=== PATIENT | male | born 1945 | race Caucasian/White ===

== ENCOUNTER 2019-04-11 14:16 | Emergency (ER) | payer OTHER, MEDICARE ==
[~2019-04-11] VITALS: Ht 172.7 cm; Wt 95.2 kg
[~2019-04-11 14:16] MED LIST: ALBU90OI INH; ATEN25 PO; CARB100ER PO; FOSI10; IBUP400 PO; LOMOTRIGINE; MECL25 PO; PHENO60 PO; SIMV80 PO
[2019-04-11] MEDS ORDERED: ALBU2.5V5 INH (16:42)
[2019-04-11] MEDS ORDERED: ATOR10 PO (16:43)
[2019-04-11] MEDS ORDERED: CHLO25B PO (16:43)
[2019-04-11] MEDS ORDERED: CARB10OTL (16:43)
[2019-04-11] MEDS ORDERED: ASPI81CH PO (16:43)
[2019-04-11] MEDS ORDERED: Nizoral120 M1 (16:44)
[2019-04-11] MEDS ORDERED: GABA100 PO (16:44)
[2019-04-11] MEDS ORDERED: ARTIFICIAL TEA1 EACH (16:44)
[2019-04-11] MEDS ORDERED: LAMO25 PO (16:44)
[2019-04-11] MEDS ORDERED: PHENO60 PO (16:45)
[2019-04-11] MEDS ORDERED: PSYSENPA PO (16:45)
[2019-04-11] MEDS ORDERED: GENPREOPSU (16:45)
[2019-04-11] MEDS ORDERED: Lopressor 25 mg25 MG PO (16:45)
[2019-04-11] MEDS ORDERED: SODFLU2.2 PO (16:46)
[2019-04-11 16:52] LABS: Source, Urine Clean Catch
[2019-04-11 16:55] LABS: BASOPHILS ABSOLUTE AUTO 0.06 K/mm3 (0.00-0.23); BASOPHILS PERCENT AUTO 1 % (0-2); EOSINOPHILS ABSOLUTE AUTO 0.14 K/mm3 (0.00-0.68); EOSINOPHILS PERCENT AUTO 2 % (0-6); Hematocrit 42.7 % (37.0-53.0); Hemoglobin 14.3 g/dL (13.5-17.5); IMMATURE GRAN ABSOLUTE AUTO 0.02 K/mm3 (0.00-0.10); IMMATURE GRAN PERCENT AUTO 0 % (0-1); LYMPHOCYTES ABSOLUTE AUTO 1.76 K/mm3 (0.84-5.20); LYMPHOCYTES PERCENT AUTO 26 % (21-46); MONOCYTES ABSOLUTE AUTO 0.77 K/mm3 (0.16-1.47); MONOCYTES PERCENT AUTO 11 % (4-13); Mean Corpuscular HGB Conc 33.5 g/dL (31.5-36.5); Mean Corpuscular Volume 90 fL (80-100); Mean Platelet Volume 11.1 fL (9.1-12.4); NEUTROPHILS ABSOLUTE AUTO 3.99 K/mm3 (1.96-9.15); NEUTROPHILS PERCENT AUTO 59 % (41-73); Platelet Count 264 K/mm3 (150-400); RDW Coefficient Variation 12.9 % (11.7-14.2); RDW Standard Deviation 42.1 fL (35.1-46.3); Red Blood Cell Count 4.77 M/mm3 (4.30-5.90); White Blood Cell Count 6.74 K/mm3 (4.00-11.30)
[2019-04-11 16:56] LABS: Bilirubin, Urine Neg (Neg); Blood, Urine Neg (Neg); Glucose Qualitative, Urine Neg (Neg); Ketones, Urine Neg (Neg); Leukocyte Esterase, Urine Neg (Neg); Nitrite, Urine Neg (Neg); Protein, Urine Neg (Neg); Urobilinogen, Urine NORM (Normal)
[2019-04-11 16:59] LABS: Appearance, Urine Clear (Clear); Color, Urine Yellow (P-Yellow)
[2019-04-11 17:11] LABS: Alanine Aminotransfer (ALT/SGP 21 U/L (12-78); Albumin/Globulin Ratio 1.2 (0.8-1.8); Alk Phos 86 U/L (50-136); Anion Gap 7 mmol/L (6-16); Aspartate Aminotrans (AST/SGOT 18 U/L (12-37); Bilirubin, Total 0.3 mg/dL (0.1-1.0); Blood Urea Nitrogen 11 mg/dL (8-24); Bun/Creatinine Ratio 12.2 (12.0-20.0); CO2, Blood 31 mmol/L (21-32); Calcium, Blood 9.3 mg/dL (8.5-10.1); Chloride, Blood 96 mmol/L (98-108); Creatinine, Blood 0.91 mg/dL (0.60-1.20); Globulin, Blood 3.4 g/dL (2.2-4.0); Glomerular Filtration Rate >60 (60-); Glucose, Blood 93 mg/dL (70-99); Potassium, Blood 3.1 mmol/L (3.5-5.5); Sodium, Blood 134 mmol/L (136-145); Total Protein, Blood 7.4 g/dL (6.4-8.2)
== END 2019-04-11 18:39 | disposition home or self-care (01) ==
LOC: ER 14:16
PROVIDERS: Physician Assistant
DX: H53.143 Visual discomfort, bilateral (principal); E87.6 Hypokalemia; Z88.8 Allergy status to other drugs, medicaments and biological substances; Z79.899 Other long term (current) drug therapy
CPT/HCPCS: 36415; 70450; 80053; 81003; 85025; 93005; 93010; 99284-25

== ENCOUNTER 2019-06-14 17:46 | Emergency (ER) | payer MEDICARE, OTHER ==
[~2019-06-14] VITALS: Ht 172.7 cm; Wt 95.7 kg
[~2019-06-14 17:46] MED LIST changes: +ALBU2.5V5 INH; +ARTIFICIAL TEA1 EACH; +ASPI81CH PO; +ATOR10 PO; +CARB10OTL; +CHLO25B PO; +GABA100 PO; +GENPREOPSU; +LAMO25 PO; +Lopressor 25 mg25 MG PO; +Nizoral120 M1; +PSYSENPA PO; +SODFLU2.2 PO
[2019-06-14 19:08] LABS: BASOPHILS ABSOLUTE AUTO 0.07 K/mm3 (0.00-0.23); BASOPHILS PERCENT AUTO 1 % (0-2); EOSINOPHILS ABSOLUTE AUTO 0.05 K/mm3 (0.00-0.68); EOSINOPHILS PERCENT AUTO 0 % (0-6); Hematocrit 42.3 % (37.0-53.0); Hemoglobin 13.9 g/dL (13.5-17.5); IMMATURE GRAN ABSOLUTE AUTO 0.08 K/mm3 (0.00-0.10); IMMATURE GRAN PERCENT AUTO 1 % (0-1); LYMPHOCYTES ABSOLUTE AUTO 1.06 K/mm3 (0.84-5.20); LYMPHOCYTES PERCENT AUTO 9 % (21-46); MONOCYTES ABSOLUTE AUTO 0.82 K/mm3 (0.16-1.47); MONOCYTES PERCENT AUTO 7 % (4-13); Mean Corpuscular HGB 29.9 pg (26.0-34.0); Mean Corpuscular HGB Conc 32.9 g/dL (31.5-36.5); Mean Corpuscular Volume 91 fL (80-100); NEUTROPHILS ABSOLUTE AUTO 9.61 K/mm3 (1.96-9.15); NEUTROPHILS PERCENT AUTO 82 % (41-73); Platelet Count 332 K/mm3 (150-400); RDW Standard Deviation 43.1 fL (35.1-46.3); Red Blood Cell Count 4.65 M/mm3 (4.30-5.90); White Blood Cell Count 11.69 K/mm3 (4.00-11.30)
[2019-06-14 19:34] LABS: Alanine Aminotransfer (ALT/SGP 20 U/L (12-78); Albumin, Blood 3.8 g/dL (3.4-5.0); Alk Phos 105 U/L (50-136); Anion Gap 5 mmol/L (6-16); Aspartate Aminotrans (AST/SGOT 43 U/L (12-37); Bilirubin, Total 0.6 mg/dL (0.1-1.0); Blood Urea Nitrogen 13 mg/dL (8-24); Bun/Creatinine Ratio 13.8 (12.0-20.0); CO2, Blood 27 mmol/L (21-32); Chloride, Blood 98 mmol/L (98-108); Creatinine, Blood 0.94 mg/dL (0.60-1.20); Glomerular Filtration Rate >60 (60-); Glucose, Blood 140 mg/dL (70-99); Potassium, Blood 4.7 mmol/L (3.5-5.5); Sodium, Blood 130 mmol/L (136-145); Total Protein, Blood 7.8 g/dL (6.4-8.2); Troponin I <0.015 ng/mL (0.000-0.040)
[2019-06-14] MEDS ORDERED: CHLO25B PO (20:07)
== END 2019-06-14 22:10 | disposition home or self-care (01) ==
LOC: ER 17:46
PROVIDERS: Physician Assistant
DX: S63.501A Unspecified sprain of right wrist, initial encounter (principal); S40.011A Contusion of right shoulder, initial encounter; S00.511A Abrasion of lip, initial encounter; S00.81XA Abrasion of other part of head, initial encounter; S60.512A Abrasion of left hand, initial encounter; Z88.4 Allergy status to anesthetic agent; Z88.8 Allergy status to other drugs, medicaments and biological substances; Z79.899 Other long term (current) drug therapy; Z79.82 Long term (current) use of aspirin; Z79.52 Long term (current) use of systemic steroids; W01.0XXA Fall on same level from slipping, tripping and stumbling without subsequent striking against object, initial encounter
CPT/HCPCS: 70450; 71046; 73110; 80053; 84484; 85025; 93005; 93010; 99284-25

== ENCOUNTER 2019-06-17 11:22 | Emergency (ER) | payer MEDICARE, OTHER ==
[~2019-06-17] VITALS: Ht 172.7 cm; Wt 95.7 kg
[2019-06-17] MEDS ORDERED: Norvasc5 MG PO (11:55)
[2019-06-17 12:17] LABS: BASOPHILS ABSOLUTE AUTO 0.05 K/mm3 (0.00-0.23); BASOPHILS PERCENT AUTO 1 % (0-2); EOSINOPHILS ABSOLUTE AUTO 0.03 K/mm3 (0.00-0.68); EOSINOPHILS PERCENT AUTO 0 % (0-6); Hematocrit 41.3 % (37.0-53.0); Hemoglobin 13.7 g/dL (13.5-17.5); IMMATURE GRAN ABSOLUTE AUTO 0.04 K/mm3 (0.00-0.10); IMMATURE GRAN PERCENT AUTO 0 % (0-1); LYMPHOCYTES ABSOLUTE AUTO 1.56 K/mm3 (0.84-5.20); LYMPHOCYTES PERCENT AUTO 17 % (21-46); MONOCYTES PERCENT AUTO 11 % (4-13); Mean Corpuscular HGB 30.1 pg (26.0-34.0); Mean Corpuscular HGB Conc 33.2 g/dL (31.5-36.5); Mean Corpuscular Volume 91 fL (80-100); Mean Platelet Volume 10.2 fL (9.1-12.4); NEUTROPHILS ABSOLUTE AUTO 6.53 K/mm3 (1.96-9.15); NEUTROPHILS PERCENT AUTO 71 % (41-73); Platelet Count 269 K/mm3 (150-400); RDW Coefficient Variation 12.8 % (11.7-14.2); RDW Standard Deviation 42.4 fL (35.1-46.3); Red Blood Cell Count 4.55 M/mm3 (4.30-5.90); White Blood Cell Count 9.21 K/mm3 (4.00-11.30)
[2019-06-17 12:39] LABS: Anion Gap 7 mmol/L (6-16); Blood Urea Nitrogen 12 mg/dL (8-24); Bun/Creatinine Ratio 14.6 (12.0-20.0); CO2, Blood 28 mmol/L (21-32); Calcium, Blood 8.9 mg/dL (8.5-10.1); Chloride, Blood 97 mmol/L (98-108); Creatinine, Blood 0.82 mg/dL (0.60-1.20); Glomerular Filtration Rate >60 (60-); Glucose, Blood 96 mg/dL (70-99); Potassium, Blood 3.7 mmol/L (3.5-5.5); Sodium, Blood 132 mmol/L (136-145)
[2019-06-17] MEDS ORDERED: Norco 7.5-3251 EACH PO (13:43)
== END 2019-06-17 14:21 | disposition home or self-care (01) ==
LOC: ER 11:22
PROVIDERS: Emergency Medicine
DX: S22.31XA Fracture of one rib, right side, initial encounter for closed fracture (principal); S00.531A Contusion of lip, initial encounter; S00.83XA Contusion of other part of head, initial encounter; S50.11XA Contusion of right forearm, initial encounter; I10 Essential (primary) hypertension; F43.10 Post-traumatic stress disorder, unspecified; Z87.820 Personal history of traumatic brain injury; Z88.8 Allergy status to other drugs, medicaments and biological substances; Z79.82 Long term (current) use of aspirin; Z79.899 Other long term (current) drug therapy; G43.909 Migraine, unspecified, not intractable, without status migrainosus; W19.XXXA Unspecified fall, initial encounter
CPT/HCPCS: 71111; 80048; 85025; 93005; 93010; 99284-25

== ENCOUNTER 2021-08-24 05:24 | Emergency (ER) | payer MEDICARE, OTHER ==
[~2021-08-24] VITALS: Ht 177.8 cm; Wt 90.7 kg
[~2021-08-24 05:24] MED LIST changes: +Norco 7.5-3251 EACH PO; +Norvasc5 MG PO
[2021-08-24 06:44] LABS: BASOPHILS ABSOLUTE AUTO 0.03 K/mm3 (0.00-0.23); BASOPHILS PERCENT AUTO 1 % (0-2); EOSINOPHILS PERCENT AUTO 2 % (0-6); Hematocrit 44.1 % (37.0-53.0); Hemoglobin 14.3 g/dL (13.5-17.5); IMMATURE GRAN ABSOLUTE AUTO 0.02 K/mm3 (0.00-0.10); IMMATURE GRAN PERCENT AUTO 0 % (0-1); LYMPHOCYTES PERCENT AUTO 24 % (21-46); MONOCYTES ABSOLUTE AUTO 0.51 K/mm3 (0.16-1.47); MONOCYTES PERCENT AUTO 9 % (4-13); Mean Corpuscular HGB 29.4 pg (26.0-34.0); Mean Corpuscular HGB Conc 32.4 g/dL (31.5-36.5); Mean Corpuscular Volume 91 fL (80-100); Mean Platelet Volume 11.2 fL (9.1-12.4); NEUTROPHILS ABSOLUTE AUTO 3.47 K/mm3 (1.96-9.15); NEUTROPHILS PERCENT AUTO 64 % (41-73); Platelet Count 243 K/mm3 (150-400); RDW Coefficient Variation 13.2 % (11.7-14.2); RDW Standard Deviation 43.9 fL (35.1-46.3); Red Blood Cell Count 4.86 M/mm3 (4.30-5.90); White Blood Cell Count 5.43 K/mm3 (4.00-11.30)
[2021-08-24 06:58] LABS: Alanine Aminotransfer (ALT/SGP 21 U/L (12-78); Albumin, Blood 3.5 g/dL (3.4-5.0); Albumin/Globulin Ratio 0.9 (0.8-1.8); Alk Phos 76 U/L (50-136); Anion Gap 6 mmol/L (6-16); Aspartate Aminotrans (AST/SGOT 18 U/L (12-37); Bilirubin, Total 0.5 mg/dL (0.1-1.0); Blood Urea Nitrogen 23 mg/dL (8-24); Bun/Creatinine Ratio 23.1 (12.0-20.0); CO2, Blood 27 mmol/L (21-32); Calcium, Blood 9.4 mg/dL (8.5-10.1); Chloride, Blood 106 mmol/L (98-108); Creatinine, Blood 0.99 mg/dL (0.60-1.20); Globulin, Blood 3.9 g/dL (2.2-4.0); Glomerular Filtration Rate >60 (60-); Glucose, Blood 113 mg/dL (70-99); Potassium, Blood 3.9 mmol/L (3.5-5.5); Sodium, Blood 139 mmol/L (136-145); Total Protein, Blood 7.4 g/dL (6.4-8.2); Troponin I <0.015 ng/mL (0.000-0.040)
== END 2021-08-24 07:29 | disposition home or self-care (01) ==
LOC: ER 05:24
PROVIDERS: Emergency Medicine
DX: Z04.3 Encounter for examination and observation following other accident (principal); W19.XXXA Unspecified fall, initial encounter
CPT/HCPCS: 36415; 80053; 84484; 85025; 93005; 93010; 99284-25

== ENCOUNTER 2021-08-24 16:24 | Emergency (ER) | payer MEDICARE, OTHER ==
[~2021-08-24] VITALS: Ht 167.6 cm; Wt 127.0 kg
[2021-08-24 17:04] LABS: BASOPHILS ABSOLUTE AUTO 0.04 K/mm3 (0.00-0.23); BASOPHILS PERCENT AUTO 1 % (0-2); EOSINOPHILS ABSOLUTE AUTO 0.01 K/mm3 (0.00-0.68); EOSINOPHILS PERCENT AUTO 0 % (0-6); Hematocrit 43.4 % (37.0-53.0); Hemoglobin 14.3 g/dL (13.5-17.5); IMMATURE GRAN ABSOLUTE AUTO 0.02 K/mm3 (0.00-0.10); IMMATURE GRAN PERCENT AUTO 0 % (0-1); LYMPHOCYTES ABSOLUTE AUTO 1.31 K/mm3 (0.84-5.20); LYMPHOCYTES PERCENT AUTO 15 % (21-46); MONOCYTES ABSOLUTE AUTO 0.77 K/mm3 (0.16-1.47); MONOCYTES PERCENT AUTO 9 % (4-13); Mean Corpuscular HGB 29.8 pg (26.0-34.0); Mean Corpuscular HGB Conc 32.9 g/dL (31.5-36.5); Mean Corpuscular Volume 90 fL (80-100); Mean Platelet Volume 10.6 fL (9.1-12.4); NEUTROPHILS ABSOLUTE AUTO 6.64 K/mm3 (1.96-9.15); NEUTROPHILS PERCENT AUTO 76 % (41-73); Platelet Count 265 K/mm3 (150-400); RDW Coefficient Variation 13.2 % (11.7-14.2); RDW Standard Deviation 43.7 fL (35.1-46.3); White Blood Cell Count 8.79 K/mm3 (4.00-11.30)
[2021-08-24 17:27] LABS: Alanine Aminotransfer (ALT/SGP 23 U/L (12-78); Albumin, Blood 3.9 g/dL (3.4-5.0); Alk Phos 83 U/L (50-136); Anion Gap 4 mmol/L (6-16); Aspartate Aminotrans (AST/SGOT 25 U/L (12-37); Bilirubin, Total 0.4 mg/dL (0.1-1.0); Blood Urea Nitrogen 24 mg/dL (8-24); Bun/Creatinine Ratio 23.1 (12.0-20.0); CO2, Blood 30 mmol/L (21-32); Calcium, Blood 9.3 mg/dL (8.5-10.1); Chloride, Blood 103 mmol/L (98-108); Creatinine, Blood 1.04 mg/dL (0.60-1.20); Globulin, Blood 3.9 g/dL (2.2-4.0); Glomerular Filtration Rate >60 (60-); Glucose, Blood 103 mg/dL (70-99); Potassium, Blood 3.7 mmol/L (3.5-5.5); Sodium, Blood 137 mmol/L (136-145); Total Protein, Blood 7.8 g/dL (6.4-8.2); Troponin I <0.015 ng/mL (0.000-0.040)
[2021-08-24 19:04] LABS: International Normalized Ratio 1.01; Prothrombin Time Results 10.6 Sec (9.7-11.5)
== END 2021-08-24 19:58 | disposition short-term general hospital (02) ==
LOC: ER 16:24
PROVIDERS: Emergency Medicine
DX: I62.9 Nontraumatic intracranial hemorrhage, unspecified (principal); R41.82 Altered mental status, unspecified; I10 Essential (primary) hypertension; G40.909 Epilepsy, unspecified, not intractable, without status epilepticus; Z87.891 Personal history of nicotine dependence
CPT/HCPCS: 36415; 36430; 70496; 70498; 73502; 73560-RT; 80053; 84484; 85025; 85610; 86900; 86901; 93005; 93010; 96374; 99285-25; J0360; J7050; P9053; Q9967

== ENCOUNTER 2023-08-16 11:05 | Inpatient (IN) | payer OTHER ==
[~2023-08-16] VITALS: Ht 172.7 cm; Wt 83.9 kg
[2023-08-16 13:24] LABS: BASOPHILS ABSOLUTE AUTO 0.04 K/mm3 (0.00-0.23); BASOPHILS PERCENT AUTO 0 % (0-2); EOSINOPHILS ABSOLUTE AUTO 0.03 K/mm3 (0.00-0.68); EOSINOPHILS PERCENT AUTO 0 % (0-6); Hematocrit 44.9 % (37.0-53.0); IMMATURE GRAN ABSOLUTE AUTO 0.06 K/mm3 (0.00-0.10); IMMATURE GRAN PERCENT AUTO 1 % (0-1); LYMPHOCYTES ABSOLUTE AUTO 0.86 K/mm3 (0.84-5.20); LYMPHOCYTES PERCENT AUTO 8 % (21-46); MONOCYTES ABSOLUTE AUTO 0.55 K/mm3 (0.16-1.47); MONOCYTES PERCENT AUTO 5 % (4-13); Mean Corpuscular HGB 29.8 pg (26.0-34.0); Mean Corpuscular HGB Conc 33.4 g/dL (31.5-36.5); Mean Corpuscular Volume 89 fL (80-100); Mean Platelet Volume 10.5 fL (9.1-12.4); NEUTROPHILS ABSOLUTE AUTO 8.99 K/mm3 (1.96-9.15); NEUTROPHILS PERCENT AUTO 85 % (41-73); Platelet Count 275 K/mm3 (150-400); RDW Coefficient Variation 13.1 % (11.7-14.2); RDW Standard Deviation 42.6 fL (35.1-46.3); Red Blood Cell Count 5.04 M/mm3 (4.30-5.90); White Blood Cell Count 10.53 K/mm3 (4.00-11.30)
[2023-08-16 13:55] LABS: Albumin, Blood 3.9 g/dL (3.4-5.0); Bilirubin, Total 0.3 mg/dL (0.1-1.0); Bun/Creatinine Ratio 17.7 (12.0-20.0); Calcium, Blood 9.1 mg/dL (8.5-10.1); Creatinine, Blood 1.13 mg/dL (0.60-1.20); Potassium, Blood 4.5 mmol/L (3.5-5.5); Total Protein, Blood 7.9 g/dL (6.4-8.2)
[2023-08-16 15:46] VITALS: BP 157/74
[2023-08-16] MEDS ORDERED: MELATONIN5 M1 PO (16:13)
--- NOTE | 2023-08-16 16:47 | NUR ---
SHIFT SUMMARY: RIGHT HIP FX PATIENT IS A&OX4. VS ARE WNL AND IS ON RA. PAIN IS MANAGED WITH IV TORADOL AT THIS TIME. PATIENT DENIES NUMBNESS OR TINGLING IN ALL EXTREMITIES. CAN MOVE ALL FINGERS AND TOES WHEN ASKED. PATIENT IS TOLERATING PO INTAKE. PATIENT IS LAYING IN BED WITH CALL LIGHT IN REACH AND FAMILY AT BEDSIDE. THE PLAN IS TO BE NPO AT MIDNIGHT TONIGHT AND TO HAVE SURGERY TOMORROW.
[2023-08-16 19:42] VITALS: BP 169/68
[2023-08-17] VITALS (16 sets, daily range): BP systolic 104–164; BP diastolic 57–96
[2023-08-17 04:48] LABS: Hematocrit 38.1 % (37.0-53.0); Hemoglobin 12.7 g/dL (13.5-17.5); Mean Corpuscular HGB 29.4 pg (26.0-34.0); Mean Corpuscular HGB Conc 33.3 g/dL (31.5-36.5); Mean Corpuscular Volume 88 fL (80-100); Mean Platelet Volume 10.2 fL (9.1-12.4); Platelet Count 224 K/mm3 (150-400); RDW Coefficient Variation 13.2 % (11.7-14.2); RDW Standard Deviation 42.9 fL (35.1-46.3); Red Blood Cell Count 4.32 M/mm3 (4.30-5.90); White Blood Cell Count 9.34 K/mm3 (4.00-11.30)
[2023-08-17 05:16] LABS: Bun/Creatinine Ratio 19.5 (12.0-20.0); Calcium, Blood 8.5 mg/dL (8.5-10.1); Creatinine, Blood 1.18 mg/dL (0.60-1.20); Magnesium, Blood 2.2 mg/dL (1.6-2.4); Potassium, Blood 4.2 mmol/L (3.5-5.5)
--- NOTE | 2023-08-17 06:23 | NUR ---
SHIFT SUMMARY R HIP FX PT RESTED T/O NIGHT. PAIN MANAGED PER EMAR. PT WAS NPO AT MIDNIGHT. FLUIDS RAN DURNIG THE NIGHT. CASTILLO DRAINING YELLOW URINE. PLAN FOR SURGERY TODAY. VSS. NO OTHER CONCERNS AT THIS TIME. CALL LIGHT WITHIN REACH
--- NOTE | 2023-08-17 10:16 | NUR ---
PT TO THE OR AT THIS TIME. PT HAD EKG DONE PER PROTOCOL. PT METOPROLOL GIVEN PER PREOP PROTOCOL WELL. PAS PLACED TO LEFT LEG. FAMILY AT BEDSIDE. SURGICAL CHECKLIST COMPLETE. WILL CONT TO MONITOR WHEN PT RETURNS TO ROOM POST OP.
--- NOTE | 2023-08-17 10:43 | NUR ---
PT ARRIVES FROM RM 214 VIA BED. PLEASANT & COOPERATIVE. SURGICAL PACK COMPLETE. AFEBRILE/VSS. SURGICAL HAT/PAS SLEEVE TO LLE/BP CUFF IN PLACE. NO COMPLAINTS. DR HARMON NOW AT BEDSIDE.
--- NOTE | 2023-08-17 19:47 | NUR ---
pt stable post op day 0 right [place] hip. pt alert, forgetful, has expressive aphasia. tolerating reg diet. siegel in place with dark dmitry urine. iv cont at ordered rate. encouraging water intake. pas to ble. right sided weakness at baseline. oxycodeone effective for pain. dressing to right hip cdi. pt has not been out of bed post op. ortho contacted r/t weight bearing status and therapy orders, no answer. nurse to clarify tomorrow.
--- NOTE | 2023-08-18 03:15 | NUR ---
SHORTHAND REPORTER SUMMARY VSS. SURGICAL SITE OF RIGHT HIP INTACT. NO NOTED DRAINAGE. CASTILLO FOR PROCEDURE IN USE. JANE URINE NOTED. RIGHT SIDE FACIAL DROOP AND WORD APHASIA CONTINUE WITH RIGHT SIDE SLIGHTLY WEAKER THAN LEFT. BUT OVER THE SHIFT, VERBAL RESPONSE MORE CLEAR, LESS ANXIOUS IN TRYING TO TALK. IVF OF NS INFUSING AT 50 ML/HR. PT PULLED OUT IV OF RIGHT SIDE ACCIDENTLY. PAIN MEDS ADMIN - SEE MAR FOR DETAILS. CALL LIGHT IN REACH. WILL CONTINUE TO ENCOURAGE PT TO REMAIN IN BED AND REDIRECT NEEDED.
[2023-08-18 03:53] VITALS: BP 134/77
[2023-08-18 07:59] VITALS: BP 148/83
[2023-08-18 15:25] VITALS: BP 157/82
--- NOTE | 2023-08-18 17:41 | NUR ---
SHIFT SUMMARY PT AxOx4 WITH INTERM DIFFICULTY COMMUNICATING D/T HX OF CVA AND RELATED APHASIA. PT IS POST OP DAY 1 RIGHT HIP HEMIARTHROPLASTY. FOCUSED PO ASSESSMENTS COMPLETED. INCISION TO R LATERAL HIP APPEARS WNL. JONATHAN DC'D AT 1035. PT SPONTANEOUSLY VOIDED x2 THIS SHIFT. PHYSICAL THERAPY IN FOR TREATMENT THIS SHIFT WITH WEIGHT BEARING TOLERATED ORDERS. PT AMBULATES WITH 1-2 ASSIST, FWW AND GB. PT HAS HAD APPROX 4 SMALL-MED SOFT BM'S THIS SHIFT. PT REPORTS HE NORMALLY HAS 2-3 BM'S PER DAY. PT REPORTED MILD-MODERATE PAIN THIS SHIFT, AND WAS MEDICATED x1 PER EMAR WITH REPORTED RELIEF. PT'S AND OTHER FAMILY MEMBERS IN FOR VISITING TODAY. PT IS CURRENTLY SITTING UP IN BED EATING DINNER WITH CALL LIGHT IN REACH. DENIES ANY NEEDS AT THIS TIME.
[2023-08-18 19:42] VITALS: BP 147/72
[2023-08-19 04:40] VITALS: BP 144/69
[2023-08-19 07:06] VITALS: BP 154/80
--- NOTE | 2023-08-19 07:42 | NUR ---
SHIFT SUMMARY NOC. PT A/O X 3 THIS SHIFT. PT IS POD2 FOR RIGHT [place] HIP. PT TOLERATING PO INTAKE AND VOIDING URINE. PT 1 PERSON ASSIST WITH GAIT BELT AND FWW. PT MEDICATED FOR PAIN X1 WITH RELIEF. PT'S PRINEO DRESSING IS C/D/I. PT RESTED WITH CALL LIGHT IN REACH.
[2023-08-19 14:15] VITALS: BP 117/69
--- NOTE | 2023-08-19 16:04 | NUR ---
SHIFT SUMMARY PT IS POD#2 FROM R [place] HIP WITH DR. FRANCOIS. PAIN MANAGED WITH PO PAIN MEDICATION. PT IS A 2 PERSON ASSIST FOR TRANSFERS. FAMILY/FRIENDS AT THE BEDSIDE T/O THE DAY. PT HAS BEEN ALERT AND ORIENTED X2-3. HE HAS EXPRESSIVE APHASIA R/T TBI AND HX OF STROKE. PLAN FOR DC TO SNF THIS EVENING, AWAITING TRANSPORT.
--- NOTE | 2023-08-19 16:26 | NUR ---
REPORT GIVEN TO TRAMAINE LORA AT [facility].
[2023-08-19 17:00] VITALS: BP 154/76
--- NOTE | 2023-08-19 18:06 | NUR ---
STAFF AT [facility] NOTIFIED THAT PT WAS GIVEN PHENOBARBITAL, OXY AND TYLENOL AT 1730.
--- NOTE | 2023-08-19 19:03 | NUR ---
PT LEFT WITH W/C TRANSPORT TO [facility] AT 1855. AT 1806 [facility] WAS NOTIFIED THAT TRANSPORT WAS LATE.
== END 2023-08-19 18:55 | DRG 522 ==
LOC: ER 11:05 → SURS 13:51
PROVIDERS: Orthopaedic Surgery; Student in an Organized Health Care Education/Training Program; ADMIT Internal Medicine
PROC: 0SRR0JZ Replacement of Right Hip Joint, Femoral Surface with Synthetic Substitute, Open Approach (ICD-10-PCS; principal; 2023-08-17 11:00)
DX: S72.011A Unspecified intracapsular fracture of right femur, initial encounter for closed fracture (principal); G89.29 Other chronic pain; M54.9 Dorsalgia, unspecified; G40.909 Epilepsy, unspecified, not intractable, without status epilepticus; I10 Essential (primary) hypertension; W01.0XXA Fall on same level from slipping, tripping and stumbling without subsequent striking against object, initial encounter; F43.10 Post-traumatic stress disorder, unspecified; Z88.8 Allergy status to other drugs, medicaments and biological substances; Z88.4 Allergy status to anesthetic agent; Z79.82 Long term (current) use of aspirin; Z79.899 Other long term (current) drug therapy; Z87.891 Personal history of nicotine dependence; Z87.820 Personal history of traumatic brain injury
CPT/HCPCS: 36415; 72170; 73502; 80048; 80053; 82947; 83735; 85025; 85027; 93005; 93010; 94760; 96374; 96375; 97110; 97116; 97161; 97166; 97530; 99284-25; A9270; C1776; J0171; J0690; J0735; J1170; J1885; J2250; J2704; J2795; J3010; J7030; J7120

== ENCOUNTER 2024-07-03 10:53 | Emergency (ER) | payer OTHER, MEDICARE ==
[~2024-07-03] VITALS: Ht 172.7 cm; Wt 82.5 kg
[~2024-07-03 10:53] MED LIST changes: +MELATONIN5 M1 PO
[2024-07-03 11:30] VITALS: BP 143/58
== END 2024-07-03 12:17 | disposition home or self-care (01) ==
LOC: ER 10:53
DX: Z04.1 Encounter for examination and observation following transport accident (principal); Z88.8 Allergy status to other drugs, medicaments and biological substances; Z79.899 Other long term (current) drug therapy; I10 Essential (primary) hypertension; F43.10 Post-traumatic stress disorder, unspecified; Z87.891 Personal history of nicotine dependence
CPT/HCPCS: 99284

== ENCOUNTER 2025-04-26 09:30 | Day surgery (SDC) | payer OTHER | END 2025-04-26 23:00 | disposition home or self-care (01) | LOC: PRE 09:30 | DX: Z01.818 Encounter for other preprocedural examination (principal); M17.12 Unilateral primary osteoarthritis, left knee | CPT/HCPCS: 93005; 93010 ==

== ENCOUNTER 2025-05-17 08:08 | Day surgery (SDC) | payer OTHER ==
[2025-04-26 09:42] VITALS: BP 130/61
[2025-05-17] VITALS (10 sets, daily range): BP systolic 97–129; BP diastolic 47–92
[~2025-05-17] VITALS: Ht 170.2 cm; Wt 74.4 kg
[~2025-05-17 08:08] MED LIST changes: +CeFAZolin Sodium 2,000 MG in NS 100 ML IV SCH; +Chlorhexidine Mouth Care 15 ML UDC MT SCH; +Dexamethasone Sod Phos 10 MG/ML 1ML VIAL ONE; +FentaNYL Citrate 50 MCG/ML 2 ML Injection ONE; +Midazolam HCl 1MG / ML 2ML Vial ONE; +Ondansetron HCl 2 MG / ML 2ML Vial ONE; +Ropivacaine 0.5% HCl/Pf 123.125 MG,EPINEPHrine HCL 0.25 MG,Ketorolac Tromethamine 15 MG... INFIL SCH; +Tranexamic Acid 100 ML IV SCH
[2025-05-17] MEDS ORDERED: Bupivacaine 0.5% HCl 5 MG/ML 30MLVIAL ONE (08:10)
[2025-05-17] MEDS ORDERED: Phenylephrine HCl 100 MCG/ML-NS 10MLSYR (1MG/10ML) ONE ×2 (08:11→11:02)
[2025-05-17] MEDS ORDERED: Albuterol 2.5 MG/3 ML VIAL INH PRN (08:40)
[2025-05-17] MEDS ORDERED: FentaNYL Citrate 50 MCG/ML 2 ML Injection IV PRN ×3 (08:40→08:45)
[2025-05-17] MEDS ORDERED: Ondansetron HCl 2 MG / ML 2ML Vial IV PRN ×2 (08:45→12:40)
[2025-05-17] MEDS ORDERED: Metoclopramide HCl 5MG / ML 2ML Vial IV PRN ×2 (08:45→12:40)
[2025-05-17] MEDS ORDERED: Midazolam HCl 1MG / ML 2ML Vial IV ONE (09:00)
--- NOTE | 2025-05-17 09:20 | NUR ---
Ambulatory in Day SurgeryPre-Op teaching done. Pt verbalizes understanding. History, Chart, Medications and Allergies reviewed before start of procedure.Patient confirms NPO status and agrees with scheduled surgery. Patient reports completing Chlorhexadine shower X2 prior to admission to hospital. PT ABLE TO STAND ON SCALE BUT ONLY BY USING HAND HOLDS. PT ABLE TO STAND AND TRANSFER FROM W/C TO BED BUT NOT WALK
--- NOTE | 2025-05-17 09:22 | NUR ---
PT HAS EXPRESSIVE DYSPHAGIA. THIS IS HIS BASELINE PER HIS ANGELITA
[2025-05-17] MEDS ORDERED: Ipratropium/Albuterol SulF 2.5-0.5MG/3 ML Amp ONE (09:52)
--- NOTE | 2025-05-17 09:56 | NUR ---
PT STOOD AT BS. ATTEMPTED TO USE URINAL W/O SUCCESS. PT HAS AUDIBLE EXP. WHEEZES W/EXERTION. DUONEB GIVEN
[2025-05-17] MEDS ORDERED: Glycopyrrolate 0.2 MG/ML 5ML VIAL ONE (11:04)
[2025-05-17] MEDS ORDERED: Magnesium Hydroxide Conc 10 ML UDC PO PRN (12:40)
[2025-05-17] MEDS ORDERED: HYDROmorphone HCl/Pf 1MG SYR IV PRN (12:40)
--- NOTE | 2025-05-17 13:05 | NUR ---
POST OP ARRIVAL TO SURGICAL UNIT VIA HOSPITAL BED. ALERT, ORIENTED, & PLEASANT. ASSESSMENT CHARTED. DENIES PAIN. DENIES N/V SO SNACKS & DRINKS GIVEN. SPOUSE & FAMILY TO ROOM.
[2025-05-17] MEDS ORDERED: CeFAZolin Sodium 2,000 MG in NS 100 ML IV SCH (16:00)
[2025-05-17] MEDS ORDERED: ACET500 PO (16:12)
[2025-05-17] MEDS ORDERED: OXYC5 PO (16:13)
[2025-05-17] MEDS ORDERED: ASPI81CH PO (16:13)
[2025-05-17] MEDS ORDERED: DOCU100 PO (16:13)
[2025-05-17] MEDS ORDERED: Ketorolac Tromethamine 15mg Vial IV SCH (18:00)
--- NOTE | 2025-05-17 18:00 | NUR ---
DISCHARGE PT HAS WORKED w/ THERAPY. PAIN WELL CONTROLLED. EATING, DRINKING, & VOIDED x 1. SLIGHTLY SHAKY w/ AMBULATION, BUT FAMILY & PT WANT TO DC HOME. POLAR PACK & RHODAG SENT w/ PT. ESCORTED OUT VIA W/C.
== END 2025-05-17 17:53 | disposition home or self-care (01) ==
LOC: ORSCMMR 08:08 → ORD 08:30 → ORSCMMR 08:30 → ORD 09:30 → ORSCMMR 09:30 → ORD 10:30 → SURS 12:53 → ORSCMMR 17:53
PROVIDERS: Orthopaedic Surgery
PROC: 8E0Y0CZ Robotic Assisted Procedure of Lower Extremity, Open Approach (ICD-10-PCS; principal; 2025-05-17 09:30)
PROC: 0SRD0JA Replacement of Left Knee Joint with Synthetic Substitute, Uncemented, Open Approach (ICD-10-PCS; principal; 2025-05-17 09:30)
DX: M17.12 Unilateral primary osteoarthritis, left knee (principal); I10 Essential (primary) hypertension; E78.5 Hyperlipidemia, unspecified; Z87.891 Personal history of nicotine dependence; J44.89 Other specified chronic obstructive pulmonary disease; M41.9 Scoliosis, unspecified; Z79.899 Other long term (current) drug therapy; G40.909 Epilepsy, unspecified, not intractable, without status epilepticus; Z79.82 Long term (current) use of aspirin
CPT/HCPCS: 27447; 0055T; 73560-LT; 97110; 97116; 97162; 97530; A9270; C1713; C1776; J0166; J0690; J0735; J1100; J1885; J2250; J2371; J2405; J2704; J2795; J3010; J7120